=== PATIENT | male | born 1985 | race American Indian/Alaskan Native ===

== ENCOUNTER 2018-11-10 13:06 | Emergency (ER) | payer SELFPAY ==
[2018-11-10 13:51] VITALS: BP 128/67
--- NOTE | 2018-11-10 13:57 | Emergency Department Report ---
ED Back Pain/Injury HPI - General Chief Complaint: Back Pain/Injury Stated Complaint: LOWER BACK PAIN Time Seen by Provider: 11/10/18 13:48 Source: patient Limitations: No Limitations - History of Present Illness Initial Comments: Pt presents to the ED with c/o right lower back pain that began today. Pt states he was picking up a pack of water and felt a "tweak in his back". pt has he a hx of DDD. has seen an orthopedic spine doctor but it has been a long time. denies any any numbness or weakness. denies any other medical problems. did not take anything. no allergies to meds. non smoker, +drinker, no drug use. - Related Data Previous Rx's Medication Instructions Recorded Last Taken Type Cyclobenzaprine [Flexeril] 10 mg PO QHS PRN #10 tablet 11/10/18 Unknown Rx Ibuprofen [Motrin 800 MG tab] 800 mg PO Q8HR PRN #20 tablet 11/10/18 Unknown Rx Allergies Allergy/AdvReac Type Severity Reaction Status Date / Time No Known Allergies Allergy Unverified 11/10/18 13:51 ED Review of Systems ROS: Stated complaint: LOWER BACK PAIN Other details as noted in HPI Comment: All other systems reviewed and negative ED Past Medical Hx - Past Medical History Previous Medical History?: No - Surgical History Past Surgical History?: No - Medications Home Medications: Home Medications Medication Instructions Recorded Confirmed Last Taken Type Cyclobenzaprine [Flexeril] 10 mg PO QHS PRN #10 tablet 11/10/18 Unknown Rx Ibuprofen [Motrin 800 MG tab] 800 mg PO Q8HR PRN #20 tablet 11/10/18 Unknown Rx ED Physical Exam - General Limitations: No Limitations General appearance: alert, in no apparent distress - Head Head exam: Present: atraumatic, normocephalic - Eye Eye exam: Present: normal appearance, PERRL - Neck Neck exam: Present: normal inspection, full ROM. Absent: tenderness - Respiratory Respiratory exam: Absent: respiratory distress - Back Exam Back exam: Present: normal inspection, full ROM, paraspinal tenderness (very mild right sided L-spine paraspinal TTP, no midline C-spine, T-spine, or L-spine tenderness, no step offs, no deformities). Absent: vertebral tenderness - Neurological Exam Neurological exam: Present: alert, oriented X3, CN II-XII intact, normal gait. Absent: motor sensory deficit - Psychiatric Psychiatric exam: Present: normal affect, normal mood - Skin Skin exam: Present: warm, dry, intact ED Course Vital Signs 11/10/18 13:50 Temperature 98 F Pulse Rate 88 Respiratory 18 Rate Blood Pressure 128/67 O2 Sat by Pulse 97 Oximetry ED Medical Decision Making - Medical Decision Making Pt presents to the ED with c/o right lower back pain that began today. Pt states he was picking up a pack of water and felt a "tweak in his back". pt has he a hx of DDD. has seen an orthopedic spine doctor but it has been a long time. denies any any numbness or weakness. denies any other medical problems. did not take anything. no allergies to meds. non smoker, +drinker, no drug use. normal vital signs. on exam: very mild right sided L-spine paraspinal TTP, no midline C- spine, T-spine, or L-spine tenderness, no step offs, no deformities, no neuro deficit. pt states that he has to drive his car home today, states he would like to get prescriptions to go home with. pt given anti-inflammatory and muscle relaxer. discussed to please follow up with an orthopedic spine doctor in the next 2-3 days. please take medication as prescribed. only take muscle relaxer at night before bedtime and do not drive or operate heavy machinery while taking. may use ice, heat, rest, epsom salt bath. return to the emergency room for any new or worsening symptoms as discussed. - Differential Diagnosis strain, sprain Critical care attestation.: If time is entered above; I have spent that time in minutes in the direct care of this critically ill patient, excluding procedure time. ED Disposition Clinical Impression: Low back strain Qualifiers: Encounter type: initial encounter Qualified Code(s): S39.012A - Strain of muscle, fascia and tendon of lower back, initial encounter Disposition: - TO HOME OR SELFCARE Is pt being admited?: No Does the pt Need Aspirin: No Condition: Stable Instructions: Muscle Strain (ED) Additional Instructions: please follow up with an orthopedic spine doctor in the next 2-3 days. please take medication as prescribed. only take muscle relaxer at night before bedtime and do not drive or operate heavy machinery while taking. may use ice, heat, rest, epsom salt bath. return to the emergency room for any new or worsening symptoms as discussed. [facility] Address: [address], [place] [address] [facility] Address: [address], [place] [address] Prescriptions: Cyclobenzaprine [Flexeril] 10 mg PO QHS PRN #10 tablet PRN Reason: Muscle Spasm Ibuprofen [Motrin 800 MG tab] 800 mg PO Q8HR PRN #20 tablet PRN Reason: Pain, Moderate (4-6) Referrals: ELIAS OLEARY MD [Staff Physician] - 2-3 Days Time of Disposition: 14:10 Print Language: CAMEROONIAN
== END 2018-11-10 18:01 | disposition home or self-care (01) ==
LOC: ED 13:06
DX: S39.012A Strain of muscle, fascia and tendon of lower back, initial encounter (principal); X50.0XXA Overexertion from strenuous movement or load, initial encounter; Y93.89 Activity, other specified; Y92.89 Other specified places as the place of occurrence of the external cause; Y99.8 Other external cause status
CPT/HCPCS: 99282